=== PATIENT | female | born 1995 | race Caucasian/White ===

== ENCOUNTER 2017-04-28 13:16 | Emergency (ER) | payer OTHER ==
[~2017-04-28] VITALS: Ht 162.6 cm; Wt 72.6 kg
[~2017-04-28 13:16] MED LIST: BCP; BIRTH CONTROL PILL; BUTALB-APAP-CA1 EACH PO; CARAFATE 1 GM TA1 GM PO; CEFTIN500 MG PO; CYCLOBENZAPRINE5 MG PO; FLAGYL500 MG PO; IBUPROFEN 600600 M1 PO; IBUPROFEN 800800 M1; IBUPROFEN 800800 M1 PO; IRON; IRON325; KEFLEX500 MG PO; MAXALT MLT ODT 55 M1 PO; MULTIVITAMIN; NAPROSYN500 MG PO; NOHOMEMEDICATIONS; OMEPRAZOLE 20 M20 MG PO; ONDANSETRON HCL4 M2 PO; ORTHO TRI-CYCL1 EACH PO; PAXIL10 MG; PRILOSEC 20 MG20 MG PO; RANITIDINE; UNICOMPLEX M TA1 TA1 PO; ZANTAC 150MG T150 MG PO; ZOFRAN ODT4 MG PO; ZOFRAN ODT4 MG SUBLING; ZOFRAN4 MG PO; ZPAK PO; ZYRTEC10 M2 PO; allergy med
[2017-04-28 14:01] VITALS: BP 143/85
== END 2017-04-28 14:02 | disposition home or self-care (01) ==
LOC: M.ERS 13:16
DX: J02.9 Acute pharyngitis, unspecified (principal); K21.9 Gastro-esophageal reflux disease without esophagitis

== ENCOUNTER 2017-06-15 18:07 | Emergency (ER) | payer OTHER ==
[~2017-06-15] VITALS: Ht 160 cm; Wt 72.6 kg
[2017-06-15 18:39] VITALS: BP 137/92
== END 2017-06-15 18:40 | disposition short-term general hospital (02) ==
LOC: M.ERS 18:07
DX: N63.0 Unspecified lump in unspecified breast (principal); K21.9 Gastro-esophageal reflux disease without esophagitis; Z88.1 Allergy status to other antibiotic agents; Z88.5 Allergy status to narcotic agent

== ENCOUNTER 2017-08-21 08:52 | Emergency (ER) | payer OTHER ==
[~2017-08-21] VITALS: Ht 162.6 cm; Wt 72.6 kg
[2017-08-21] MEDS ORDERED: BACTRIM DS TAB1 EACH PO (10:04)
[2017-08-21] MEDS ORDERED: ATROVENT (10:04)
[2017-08-21 10:21] VITALS: BP 128/86
== END 2017-08-21 10:21 | disposition home or self-care (01) ==
LOC: M.ERS 08:52
DX: H66.91 Otitis media, unspecified, right ear (principal); J32.9 Chronic sinusitis, unspecified; K21.9 Gastro-esophageal reflux disease without esophagitis; Z88.1 Allergy status to other antibiotic agents; Z88.5 Allergy status to narcotic agent

== ENCOUNTER 2017-12-11 18:18 | Emergency (ER) | payer MEDICAID ==
[~2017-12-11] VITALS: Ht 162.6 cm; Wt 63.5 kg
[~2017-12-11 18:18] MED LIST changes: +ATROVENT; +BACTRIM DS TAB1 EACH PO
[2017-12-11] MEDS ORDERED: PHENERGAN 25 MG25 M1 PO (18:33)
[2017-12-11 18:59] LABS: URINE BLOOD NEGATIVE (Negative); URINE CLARITY CLEAR; URINE COLOR YELLOW; URINE GLUCOSE-RANDOM NEGATIVE (Negative); URINE NITRITE-REFLEX NEGATIVE (Negative); URINE PROTEIN 1+ (Negative); URINE SPECIFIC GRAVITY 1.025 (1.005-1.030); URINE UROBILINOGEN 0.2 E.U./dl (0.2-1.0)
[2017-12-11 19:08] LABS: URINE BILIRUBIN 1+ (Negative); URINE KETONES 3+ (Negative); URINE LEUKOCYTES-REFLEX 2+ (Negative); URINE REDUCING SUBSTANCE NEGATIVE (Negative)
[2017-12-11 19:10] LABS: ICTOTEST (BILI CONFIRMATORY) Negative (Negative)
[2017-12-11 19:14] LABS: SQUAMOUS >10 Many /LPF (0-3); URINE WBC-REFLEX 6-15 Few /HPF (0-5)
[2017-12-11 19:15] LABS: BACTERIA-REFLEX 1-9 Few /HPF (None Seen); CASTS None Seen /LPF (None Seen); CRYSTALS None Seen /LPF (None Seen)
[2017-12-11 19:16] LABS: MUCUS None Seen strn/LPF (None Seen); URINE RBC 0-2 Rare /HPF (0-2)
[2017-12-11 19:24] LABS: HEMATOCRIT 39.1 % (37.0-47.0); HEMOGLOBIN 13.3 gm/dL (12.0-15.0); MCHC 34.2 g/dL (28.0-37.0); NUCLEATED RBCS 0 /100WBC; PLATELET COUNT* 267 thou/uL (150-400); RBC 4.77 mil/uL (4.20-5.00); RDW-CV 14.1 % (10.5-14.5); WBC 10.9 thou/uL (4.0-11.0)
[2017-12-11 19:37] LABS: CALCIUM 8.8 mg/dL (8.5-10.1); CREATININE 0.7 mg/dL (0.6-1.3); POTASSIUM 3.6 mmol/L (3.5-5.1)
[2017-12-11 19:42] LABS: ALBUMIN 3.7 g/dL (3.4-5.0); TOTAL BILIRUBIN 0.5 mg/dL (<0.1-1.0); TOTAL PROTEIN 7.7 g/dL (6.4-8.2)
[2017-12-11 20:03] LABS: ABSOLUTE EOSINOPHILS 0.1 thou/uL (0.0-0.7); ABSOLUTE LYMPHOCYTES 0.5 thou/uL (0.8-5.3); ABSOLUTE MONOCYTES 1.1 thou/uL (0.0-1.2); ABSOLUTE NEUTROPHILS 9.2 thou/uL (1.6-8.1); PLATELET ESTIMATE ADEQUATE
[2017-12-11] MEDS ORDERED: MACROBID 100 M100 M1 PO (21:18)
[2017-12-11] MEDS ORDERED: FLAGYL500 MG PO (21:18)
[2017-12-11 22:03] VITALS: BP 109/51
== END 2017-12-11 22:05 | disposition home or self-care (01) ==
LOC: M.ERS 18:18
PROVIDERS: Nurse Practitioner Family
DX: O23.41 Unspecified infection of urinary tract in pregnancy, first trimester (principal); O21.8 Other vomiting complicating pregnancy; K21.9 Gastro-esophageal reflux disease without esophagitis; Z3A.08 8 weeks gestation of pregnancy; Z88.1 Allergy status to other antibiotic agents; Z88.6 Allergy status to analgesic agent; Z88.8 Allergy status to other drugs, medicaments and biological substances

== ENCOUNTER 2018-02-17 18:08 | Emergency (ER) | payer OTHER, MEDICAID ==
[~2018-02-17] VITALS: Ht 162.6 cm; Wt 90.7 kg
[~2018-02-17 18:08] MED LIST changes: +MACROBID 100 M100 M1 PO; +PHENERGAN 25 MG25 M1 PO
[2018-02-17] MEDS ORDERED: NORCO 5-325 TA1 EACH PO (18:47)
[2018-02-17] MEDS ORDERED: PERIDEX15 ML PO (18:48)
[2018-02-17] MEDS ORDERED: FLONASE 0.05%50 MCG NASAL (18:48)
[2018-02-17] MEDS ORDERED: BACTRIM DS TAB1 EACH PO (18:48)
[2018-02-17 19:13] LABS: ABSOLUTE EOSINOPHILS 0.1 thou/uL (0.0-0.7); ABSOLUTE LYMPHOCYTES 1.5 thou/uL (0.8-5.3); ABSOLUTE MONOCYTES 0.6 thou/uL (0.0-1.2); ABSOLUTE NEUTROPHILS 11.3 thou/uL (1.6-8.1); BASOPHILS 0.2 %; EOSINOPHILS 0.6 %; HEMOGLOBIN 12.3 gm/dL (12.0-15.0); MCH 28.8 pg (26.0-34.0); MCHC 34.3 g/dL (28.0-37.0); MONOCYTES 4.7 %; MPV 7.1 fl. (7.2-11.1); NUCLEATED RBCS 0 /100WBC; PLATELET COUNT* 273 thou/uL (150-400); POLYS 83.5 %; RBC 4.29 mil/uL (4.20-5.00); RDW-CV 13.6 % (10.5-14.5); WBC 13.5 thou/uL (4.0-11.0)
[2018-02-17 19:21] LABS: CALCIUM 8.8 mg/dL (8.5-10.1); CREATININE 0.6 mg/dL (0.6-1.3); POTASSIUM 3.4 mmol/L (3.5-5.1)
[2018-02-17 19:25] LABS: ALBUMIN 3.2 g/dL (3.4-5.0); TOTAL BILIRUBIN 0.3 mg/dL (<0.1-1.0); TOTAL PROTEIN 7.6 g/dL (6.4-8.2)
[2018-02-17 19:39] LABS: URINE BILIRUBIN NEGATIVE (Negative); URINE BLOOD NEGATIVE (Negative); URINE CLARITY CLEAR; URINE COLOR YELLOW; URINE GLUCOSE-RANDOM NEGATIVE (Negative); URINE LEUKOCYTES-REFLEX NEGATIVE (Negative); URINE NITRITE-REFLEX NEGATIVE (Negative); URINE PROTEIN 1+ (Negative); URINE SPECIFIC GRAVITY >= 1.030 (1.005-1.030); URINE UROBILINOGEN 0.2 E.U./dl (0.2-1.0)
[2018-02-17 19:41] LABS: URINE KETONES 3+ (Negative); URINE REDUCING SUBSTANCE NEGATIVE (Negative)
[2018-02-17] MEDS ORDERED: CLEOCIN HCL150 MG PO (21:10)
[2018-02-17 22:44] VITALS: BP 156/90
== END 2018-02-17 22:44 | disposition home or self-care (01) ==
LOC: M.ERS 18:08
PROVIDERS: Nurse Practitioner Family
DX: O26.892 Other specified pregnancy related conditions, second trimester (principal); Z3A.18 18 weeks gestation of pregnancy; K08.89 Other specified disorders of teeth and supporting structures; J01.90 Acute sinusitis, unspecified; O20.0 Threatened abortion; O99.612 Diseases of the digestive system complicating pregnancy, second trimester; K21.9 Gastro-esophageal reflux disease without esophagitis; Z88.1 Allergy status to other antibiotic agents; Z88.5 Allergy status to narcotic agent; R11.2 Nausea with vomiting, unspecified

== ENCOUNTER 2018-10-10 17:37 | Emergency (ER) | payer OTHER, MEDICAID ==
[~2018-10-10] VITALS: Ht 162.6 cm; Wt 86.2 kg
[~2018-10-10 17:37] MED LIST changes: +CLEOCIN HCL150 MG PO; +FLONASE 0.05%50 MCG NASAL; +NORCO 5-325 TA1 EACH PO; +PERIDEX15 ML PO
[2018-10-10 17:45] VITALS: BP 153/97
[2018-10-10] MEDS ORDERED: HYDROXYZINE HCL25 M1 PO (17:57)
[2018-10-10] MEDS ORDERED: MEDROLDOSEPACK PO (17:57)
== END 2018-10-10 18:10 | disposition home or self-care (01) ==
LOC: M.ERS 17:37
DX: L23.7 Allergic contact dermatitis due to plants, except food (principal); K21.9 Gastro-esophageal reflux disease without esophagitis; Z88.1 Allergy status to other antibiotic agents; Z88.5 Allergy status to narcotic agent

== ENCOUNTER 2018-10-25 14:49 | Emergency (ER) | payer OTHER, MEDICAID ==
[~2018-10-25] VITALS: Ht 162.6 cm; Wt 81.7 kg
[~2018-10-25 14:49] MED LIST changes: +HYDROXYZINE HCL25 M1 PO; +MEDROLDOSEPACK PO
[2018-10-25] MEDS ORDERED: NOHOMEMEDICATIONS (15:01)
[2018-10-25] MEDS ORDERED: PERMETHRIN60 GM TOP (17:13)
[2018-10-25] MEDS ORDERED: BUTALB-APAP-CA1 EACH PO (17:13)
[2018-10-25 17:20] VITALS: BP 136/87
== END 2018-10-25 17:38 | disposition home or self-care (01) ==
LOC: M.ERS 14:49
DX: G43.909 Migraine, unspecified, not intractable, without status migrainosus (principal); L53.9 Erythematous condition, unspecified; K21.9 Gastro-esophageal reflux disease without esophagitis; Z88.1 Allergy status to other antibiotic agents; Z88.5 Allergy status to narcotic agent

== ENCOUNTER 2018-12-28 19:19 | Emergency (ER) | payer OTHER, MEDICAID ==
[~2018-12-28] VITALS: Ht 162.6 cm; Wt 86.2 kg
[~2018-12-28 19:19] MED LIST changes: +PERMETHRIN60 GM TOP
[2018-12-28 19:53] LABS: URINE BILIRUBIN NEGATIVE (Negative); URINE BLOOD NEGATIVE (Negative); URINE CLARITY CLEAR; URINE COLOR YELLOW; URINE GLUCOSE-RANDOM NEGATIVE (Negative); URINE KETONES NEGATIVE (Negative); URINE LEUKOCYTES-REFLEX NEGATIVE (Negative); URINE NITRITE-REFLEX NEGATIVE (Negative); URINE PROTEIN NEGATIVE (Negative); URINE SPECIFIC GRAVITY 1.025 (1.005-1.030); URINE UROBILINOGEN 0.2 E.U./dl (0.2-1.0)
[2018-12-28 20:09] LABS: ABSOLUTE BASOPHILS 0.1 thou/uL (0.0-0.2); ABSOLUTE EOSINOPHILS 0.4 thou/uL (0.0-0.7); ABSOLUTE LYMPHOCYTES 2.3 thou/uL (0.8-5.3); ABSOLUTE MONOCYTES 0.5 thou/uL (0.0-1.2); ABSOLUTE NEUTROPHILS 3.8 thou/uL (1.6-8.1); EOSINOPHILS 6.1 %; HEMATOCRIT 40.1 % (37.0-47.0); HEMOGLOBIN 14.2 gm/dL (12.0-15.0); LYMPHOCYTES 32.9 %; MCH 29.4 pg (26.0-34.0); MCHC 35.4 g/dL (28.0-37.0); MCV 83.2 fL (80.0-100.0); MONOCYTES 6.8 %; NUCLEATED RBCS 0 /100WBC; PLATELET COUNT* 270 thou/uL (150-400); POLYS 53.2 %; RBC 4.82 mil/uL (4.20-5.00); RDW-CV 12.8 % (10.5-14.5); WBC 7.1 thou/uL (4.0-11.0)
[2018-12-28 20:19] LABS: CALCIUM 8.9 mg/dL (8.5-10.1); CREATININE 0.7 mg/dL (0.6-1.3); POTASSIUM 3.7 mmol/L (3.5-5.1)
[2018-12-28 20:23] LABS: ALBUMIN 3.8 g/dL (3.4-5.0); TOTAL BILIRUBIN 0.5 mg/dL (<0.1-1.0); TOTAL PROTEIN 7.6 g/dL (6.4-8.2)
[2018-12-28 20:42] VITALS: BP 128/92
== END 2018-12-28 20:43 | disposition home or self-care (01) ==
LOC: M.ERS 19:19
PROVIDERS: Family Medicine
DX: G43.909 Migraine, unspecified, not intractable, without status migrainosus (principal); K21.9 Gastro-esophageal reflux disease without esophagitis; Z88.1 Allergy status to other antibiotic agents; Z88.8 Allergy status to other drugs, medicaments and biological substances; Z88.5 Allergy status to narcotic agent; Z91.041 Radiographic dye allergy status

== ENCOUNTER 2019-02-15 13:11 | Emergency (ER) | payer OTHER, MEDICAID ==
[~2019-02-15] VITALS: Ht 162.6 cm; Wt 90.7 kg
[2019-02-15 13:29] VITALS: BP 154/96
[2019-02-15] MEDS ORDERED: ZYRTEC10 M5 PO (13:32)
[2019-02-15] MEDS ORDERED: PROZAC 10 MG CA10 MG PO (13:32)
[2019-02-15] MEDS ORDERED: HYDROXYZINE HCL25 M2 PO (14:50)
[2019-02-15] MEDS ORDERED: HYDROCORTISONE3011 TOP (14:50)
[2019-02-15] MEDS ORDERED: MEDROLDOSEPACK PO (14:50)
== END 2019-02-15 15:07 | disposition home or self-care (01) ==
LOC: M.ERS 13:11
DX: L25.5 Unspecified contact dermatitis due to plants, except food (principal); G43.909 Migraine, unspecified, not intractable, without status migrainosus; K21.9 Gastro-esophageal reflux disease without esophagitis; Z88.1 Allergy status to other antibiotic agents; Z88.5 Allergy status to narcotic agent

== ENCOUNTER 2019-04-03 15:24 | Observation (INO) | payer OTHER, MEDICAID ==
[~2019-04-03] VITALS: Ht 162.6 cm; Wt 98.0 kg
[~2019-04-03 15:24] MED LIST changes: +HYDROCORTISONE3011 TOP; +HYDROXYZINE HCL25 M2 PO; +PROZAC 10 MG CA10 MG PO; +ZYRTEC10 M5 PO
[2019-04-03 15:26] VITALS: BP 138/91
[2019-04-03 16:13] LABS: HEMATOCRIT 46.7 % (37.0-47.0); HEMOGLOBIN 16.3 gm/dL (12.0-15.0); MCH 29.8 pg (26.0-34.0); MCHC 34.9 g/dL (28.0-37.0); MCV 85.3 fL (80.0-100.0); MPV 6.9 fl. (7.2-11.1); NUCLEATED RBCS 0 /100WBC; PLATELET COUNT* 323 thou/uL (150-400); RBC 5.47 mil/uL (4.20-5.00); WBC 17.3 thou/uL (4.0-11.0)
[2019-04-03 16:29] LABS: APTT 26.4 Seconds (25.0-31.3); PROTIME 10.7 Seconds (9.20-11.50)
[2019-04-03 16:34] LABS: CALCIUM 8.8 mg/dL (8.5-10.1); POTASSIUM 4.4 mmol/L (3.5-5.1)
[2019-04-03 16:39] LABS: TOTAL BILIRUBIN 0.5 mg/dL (<0.1-1.0); TOTAL PROTEIN 8.3 g/dL (6.4-8.2)
[2019-04-03 16:48] LABS: ABSOLUTE LYMPHOCYTES 0.7 thou/uL (0.8-5.3); ABSOLUTE MONOCYTES 0.3 thou/uL (0.0-1.2); ABSOLUTE NEUTROPHILS 16.3 thou/uL (1.6-8.1); PLATELET ESTIMATE ADEQUATE
[2019-04-03 17:03] LABS: URINE BILIRUBIN NEGATIVE (Negative); URINE BLOOD NEGATIVE (Negative); URINE COLOR YELLOW; URINE GLUCOSE-RANDOM NEGATIVE (Negative); URINE KETONES NEGATIVE (Negative); URINE LEUKOCYTES-REFLEX TRACE (Negative); URINE NITRITE-REFLEX NEGATIVE (Negative); URINE PROTEIN TRACE (Negative); URINE SPECIFIC GRAVITY 1.025 (1.005-1.030); URINE UROBILINOGEN 0.2 E.U./dl (0.2-1.0)
[2019-04-03 17:04] LABS: URINE CLARITY HAZY
[2019-04-03 17:12] LABS: AMP/METHAMP Negative (Negative); BARBITURATES Negative (Negative); BENZODIAZEPINES Negative (Negative); COCAINE Negative (Negative); METHADONE Negative (Negative); OPIATES Negative (Negative); PCP Negative (Negative); THC Negative (Negative)
[2019-04-03 17:14] LABS: BACTERIA-REFLEX None Seen /HPF (None Seen); CASTS None Seen /LPF (None Seen); MUCUS 0-3 Light strn/LPF (None Seen); SQUAMOUS >10 Many /LPF (0-3); URINE RBC 0-2 Rare /HPF (0-2); URINE WBC-REFLEX 6-15 Few /HPF (0-5)
[2019-04-03 17:15] LABS: CRYSTALS None Seen /LPF (None Seen)
[2019-04-03 22:11] VITALS: BP 133/83
[2019-04-03 22:15] VITALS: BP 132/90
[2019-04-04] VITALS: BP 109/62
[2019-04-04 04:00] VITALS: BP 114/59
[2019-04-04] MEDS ORDERED: PHENERGAN 25 MG25 M1 PO (09:49)
[2019-04-04] MEDS ORDERED: LOPRESSOR25 PO (09:49)
[2019-04-04 11:58] VITALS: BP 117/66
[2019-04-04 12:08] LABS: CALCIUM 8.2 mg/dL (8.5-10.1); CREATININE 0.8 mg/dL (0.6-1.3); MAGNESIUM 1.8 mg/dL (1.8-2.4); POTASSIUM 3.4 mmol/L (3.5-5.1)
--- NOTE | 2019-04-04 13:34 | EKG ---
[place] [address] ELECTROCARDIOGRAM REPORT Name: KRISTA ST Room: [address] M.R.#: [id number] Admission: 04/03/19 Attend Phys: Stiven Jimenez MD Discharge: Date of : [birth year] Report #: [id number] THIS REPORT FOR: //name// [facility] ED Test Date: 2019-04-03 Test Time: 15:29:14 Pat Name: KRISTA ST Department: Room: [address] Gender: F Grade Checker: DELVIN : 1995 Requested By: Isaías Evans Order Number: [id number] Cortez MD: Vishal Addison Measurements Intervals [place] Rate: 160 P: 40 MD: 96 QRS: 44 QRSD: 80 T: -68 QT: 261 QTc: 426 Interpretive Statements Sinus tachycardia Repol abnrm Borderline ST elevation, anterior leads No previous ECG available for comparison Electronically Signed On 04-04-2019 13:34:25 DISK OPERATOR by Vishal Addison [email or web address] <ELECTRONICALLY SIGNED> By: Vishal Addison MD, [facility] 04/04/19 1334 1529 1529 Vishal Addison MD, FACC /EPI
--- NOTE | 2019-04-04 13:34 | 2DMMODE ---
[place] [address] 2 D/M-MODE ECHOCARDIOGRAM Name: KRISTA ST Room: [address] Rajinder MRaquel#: [id number] Admission: 04/03/19 Attend Phys: Stiven Jimenez, Discharge: Date of : [birth year] Date of Service: 04/04/19 1333 Report #: [id number] THIS REPORT FOR: //name// APPROVED REPORT Study performed: 04/04/2019 09:50:56 EXAM: Comprehensive 2D, Doppler, and color-flow Echocardiogram Patient Location: In-Patient Room #: [facility] Status: routine BSA: 2.02 HR: 97 bpm BP: 109/62 mmHg Rhythm: NSR Other Information Study Quality: Good Indications Abnormal ECG 2D Dimensions IVSd: 9.99 (7-11mm) LVOT Diam: 21.05 (18-24mm) LVDd: 44.72 mm PWd: 9.09 (7-11mm) Ascending Ao: 26.25 (22-36mm) LVDs: 25.08 (25-40mm) Aortic Root: 32.08 mm Volumes Left Atrial Volume (Systole) LA ESV Index: 18.70 mL/m2 Aortic Valve AoV Peak Mayur.: 1.32 m/s AO Peak Gr.: 6.97 mmHg LVOT Max P.14 mmHg AO Mean Gr.: 4.38 mmHg LVOT Mean P.79 mmHg LVOT Max V: 1.13 m/s AO V2 VTI: 22.91 cm LVOT Mean V: 0.77 m/s ELISEO (VTI): 3.20 cm2 LVOT V1 VTI: 21.06 cm Mitral Valve E/A Ratio: 1.30 MV Decel. Time: 203.05 ms MV E Max Mayur.: 0.79 m/[place] [address] 2 D/M-MODE ECHOCARDIOGRAM Name: KRISTA ST Room: [address] M.R.#: [id number] Admission: 04/03/19 Attend Phys: Stiven Jimenez, Discharge: Date of : [birth year] Date of Service: 04/04/19 1333 Report #: [id number] MV PHT: 58.88 ms MVA (PHT): 3.74 cm2 TDI E/Lateral E': 6.08 E/Medial E': 7.90 Medial E' Mayur.: 0.10 m/s Lateral E' Mayur.: 0.13 m/s Pulmonary Valve PV Peak Mayur.: 0.95 m/s PV Peak Gr.: 3.64 mmHg Left Ventricle The left ventricle is normal size. There is normal LV segmental wall motion. There is normal left ventricular wall thickness. Left ventricular systolic function is normal. LVEF is 60-65%. The left ventricular diastolic function is normal. Right Ventricle The right ventricle is normal size. The right ventricular systolic function is normal. Atria The left atrium size is normal. The right atrium size is normal. Aortic Valve The aortic valve is normal in structure. No aortic regurgitation is present. There is no aortic valvular stenosis. Mitral Valve The mitral valve is normal in structure. There is no mitral valve regurgitation noted. No evidence of mitral valve stenosis. Tricuspid Valve The tricuspid valve is normal in structure. Unable to assess PA pressure. Trace tricuspid regurgitation. Pulmonic Valve The pulmonary valve is normal in structure. Trace pulmonic regurgitation. Great Vessels The aortic root is normal in size. IVC is not well [place] [address] 2 D/M-MODE ECHOCARDIOGRAM Name: KRISTA ST Room: [address]#: [id number] Admission: 04/03/19 Attend Phys: Stiven Jimenez, Discharge: Date of : [birth year] Date of Service: 04/04/19 1333 Report #: [id number] There is no pericardial effusion. <Conclusion> Normal echocardiogram. The left ventricle is normal size. There is normal left ventricular wall thickness. Left ventricular systolic function is normal. LVEF is 60-65%. The left ventricular diastolic function is normal. Trace tricuspid regurgitation. <ELECTRONICALLY SIGNED> By: Aris Sun MD, FACC 04/04/19 1333 133 133 Aris Sun MD, FACC /INF
--- NOTE | 2019-04-04 13:40 | EKG ---
[place] [address] ELECTROCARDIOGRAM REPORT Name: JA STA ROC Room: [address] M.R.#: [id number] Admission: 04/03/19 Attend Phys: Stiven Jimenez MD Discharge: Date of : [birth year] Report #: [id number] THIS REPORT FOR: //name// [facility] ED Test Date: 2019-04-03 Test Time: 19:52:22 Pat Name: KRISTA ST Department: Room: [facility] Gender: F Pattern Mechanic: MALIKA : 1995 Requested By: Isaías Evans Order Number: [id number] MD: Vishal Addison Measurements Intervals [place] Rate: 155 P: 34 SD: 101 QRS: 11 QRSD: 73 T: -71 QT: 303 QTc: 487 Interpretive Statements Sinus tachycardia Borderline repolarization abnormality Borderline prolonged QT interval Baseline wander in lead(s) V6 Electronically Signed On 04-04-2019 13:39:51 CLOCK SMITH by Vishal Addison [email or web address] <ELECTRONICALLY SIGNED> By: Vishal Addison MD, [facility] 04/04/19 1339 51 51 Vishal Addison MD, FACC /EPI
--- NOTE | 2019-04-04 13:47 | EKG ---
[place] [address] ELECTROCARDIOGRAM REPORT Name: KRISTA STAN Room: [address] M.R.#: [id number] Admission: 04/03/19 Attend Phys: Stiven Jimenez MD Discharge: Date of : [birth year] Report #: [id number] THIS REPORT FOR: //name// [facility] Test Date: 2019-04-04 Test Time: 10:56:50 Pat Name: KRISTA ST Department: Room: [address] Gender: F Cosmetologist Apprentice: : 1995 Requested By: Stiven Jimenez Order Number: [id number] Cortez MD: Vishal Addison Measurements Intervals [place] Rate: 91 P: 26 AL: 138 QRS: 40 QRSD: 96 T: 30 QT: 358 QTc: 441 Interpretive Statements Sinus rhythm Electronically Signed On 04-04-2019 13:47:22 AUTOMOBILE RADIO REPAIRER by Vishal Addison [email or web address] <ELECTRONICALLY SIGNED> By: Vishal Addison MD, [facility] 04/04/19 1347 1056 1056 Vishal Addison MD, FACC /EPI
[2019-04-04 17:12] VITALS: BP 117/66
== END 2019-04-04 17:30 | disposition home or self-care (01) ==
LOC: M.ERS 15:24 → M.2W 20:29 → M.TBA-ER 20:29 → M.2W 22:15
PROVIDERS: Emergency Medicine Emergency Medical Services; ADMIT Internal Medicine
DX: A08.4 Viral intestinal infection, unspecified (principal); E86.0 Dehydration; R80.9 Proteinuria, unspecified; R74.0 Nonspecific elevation of levels of transaminase and lactic acid dehydrogenase [LDH]; R00.0 Tachycardia, unspecified; I73.9 Peripheral vascular disease, unspecified; M54.9 Dorsalgia, unspecified; G43.909 Migraine, unspecified, not intractable, without status migrainosus; K21.9 Gastro-esophageal reflux disease without esophagitis; E66.9 Obesity, unspecified

== ENCOUNTER 2019-07-31 17:40 | Emergency (ER) | payer OTHER, MEDICAID ==
[~2019-07-31] VITALS: Ht 162.6 cm; Wt 90.7 kg
[~2019-07-31 17:40] MED LIST changes: +LOPRESSOR25 PO
[2019-07-31 17:47] VITALS: BP 146/96
[2019-07-31] MEDS ORDERED: TRIAMCINOLONE A80 G2 TOP (18:11)
== END 2019-07-31 18:19 | disposition home or self-care (01) ==
LOC: M.ERS 17:40
DX: R21 Rash and other nonspecific skin eruption (principal); E66.9 Obesity, unspecified; K21.9 Gastro-esophageal reflux disease without esophagitis; G43.909 Migraine, unspecified, not intractable, without status migrainosus; Z68.34 Body mass index [BMI] 34.0-34.9, adult; Z91.048 Other nonmedicinal substance allergy status; Z88.1 Allergy status to other antibiotic agents; Z88.6 Allergy status to analgesic agent

== ENCOUNTER 2020-01-22 17:22 | Emergency (ER) | payer OTHER, MEDICAID ==
[~2020-01-22] VITALS: Ht 162.6 cm; Wt 88.5 kg
[~2020-01-22 17:22] MED LIST changes: +TRIAMCINOLONE A80 G2 TOP
[2020-01-22] MEDS ORDERED: ASA81BEC PO (17:35)
[2020-01-22] MEDS ORDERED: ENBRACE HR SOF1 EACH PO (17:35)
[2020-01-22 17:43] LABS: URINE BILIRUBIN NEGATIVE (Negative); URINE BLOOD NEGATIVE (Negative); URINE CLARITY CLEAR; URINE COLOR YELLOW; URINE GLUCOSE-RANDOM NEGATIVE (Negative); URINE KETONES NEGATIVE (Negative); URINE LEUKOCYTES-REFLEX NEGATIVE (Negative); URINE NITRITE-REFLEX NEGATIVE (Negative); URINE PROTEIN NEGATIVE (Negative); URINE UROBILINOGEN 0.2 E.U./dl (0.2-1.0)
[2020-01-22 17:46] LABS: ABSOLUTE BASOPHILS 0.1 thou/uL (0.0-0.2); ABSOLUTE EOSINOPHILS 0.4 thou/uL (0.0-0.7); ABSOLUTE LYMPHOCYTES 2.2 thou/uL (0.8-5.3); ABSOLUTE MONOCYTES 0.7 thou/uL (0.0-1.2); BASOPHILS 0.4 %; HEMATOCRIT 36.3 % (37.0-47.0); HEMOGLOBIN 12.5 gm/dL (12.0-15.0); MCH 29.6 pg (26.0-34.0); MCHC 34.5 g/dL (28.0-37.0); MCV 85.8 fL (80.0-100.0); MPV 6.7 fl. (7.2-11.1); NUCLEATED RBCS 0 /100WBC; PLATELET COUNT* 297 thou/uL (150-400); POLYS 76.6 %; RBC 4.23 mil/uL (4.20-5.00); RDW-CV 13.4 % (10.5-14.5); WBC 14.3 thou/uL (4.0-11.0)
[2020-01-22 18:00] LABS: APTT 25.9 Seconds (25.0-31.3)
[2020-01-22 18:04] LABS: CALCIUM 8.7 mg/dL (8.5-10.1); CREATININE 0.6 mg/dL (0.6-1.3); POTASSIUM 3.5 mmol/L (3.5-5.1)
[2020-01-22 18:08] LABS: ALBUMIN 2.8 g/dL (3.4-5.0); TOTAL BILIRUBIN 0.1 mg/dL (<0.1-1.0); TOTAL PROTEIN 7.2 g/dL (6.4-8.2)
[2020-01-22 18:25] VITALS: BP 130/72
--- NOTE | 2020-01-23 08:27 | EKG ---
[place] [address] ELECTROCARDIOGRAM REPORT Name: KRISTA ST Room: [facility]#: [id number] Admission: 01/22/20 Attend Phys: Discharge: 01/22/20 Date of : [birth year] Date of Service: 01/22/20 1733 Report #: [id number] THIS REPORT FOR: //name// [facility] ED Test Date: 2020-01-22 Test Time: 17:33:50 Pat Name: KRISTA ST Department: Room: Gender: Car Supervisor: [facility] : 1995 Requested By: Sathish Elder Order Number: [id number] MD: Airs Sun Measurements Intervals [place] Rate: 119 P: 59 ME: 135 QRS: 27 QRSD: 84 T: 23 QT: 319 QTc: 449 Interpretive Statements Sinus tachycardia Compared to ECG 04/04/2019 10:56:50 Sinus rhythm no longer present Electronically Signed On 01-23-2020 8:27:49 CDT by Aris Sun [email or web address] <ELECTRONICALLY SIGNED> By: Aris Sun MD, [facility] 01/23/20 08 1733 32 Aris Sun MD, [facility] /EPI
== END 2020-01-22 18:33 | disposition short-term general hospital (02) ==
LOC: M.ERS 17:22
PROVIDERS: Family Medicine
DX: O26.892 Other specified pregnancy related conditions, second trimester (principal); R42 Dizziness and giddiness; O99.612 Diseases of the digestive system complicating pregnancy, second trimester; O99.352 Diseases of the nervous system complicating pregnancy, second trimester; O99.212 Obesity complicating pregnancy, second trimester; Z3A.23 23 weeks gestation of pregnancy; Z88.1 Allergy status to other antibiotic agents; Z88.5 Allergy status to narcotic agent